=== PATIENT | male | born 1960 | race Two or more races ===

== ENCOUNTER 2017-11-15 22:55 | Emergency (ER) | END 2017-11-16 02:04 | disposition home or self-care (01) ==

== ENCOUNTER 2017-12-10 | Emergency (ER) | END 2017-12-10 03:24 | disposition home or self-care (01) ==

== ENCOUNTER 2017-12-11 00:48 | Emergency (ER) | END 2017-12-11 06:55 | disposition home or self-care (01) ==

== ENCOUNTER 2017-12-14 13:12 | Emergency (ER) | END 2017-12-14 16:27 | disposition home or self-care (01) ==